=== PATIENT | female | born 1965 | race Caucasian/White ===

== ENCOUNTER 2021-08-02 19:55 | Emergency (ER) | payer BC ==
[2021-08-02 20:31] VITALS: BP 131/81; PULSE 76; RESP 18; TEMP 98.2
--- NOTE | 2021-08-02 21:11 | XR ---
EXAMINATION TYPE: XR ankle complete RT DATE OF EXAM: 08/02/2021 COMPARISON: NONE HISTORY: Ankle pain TECHNIQUE: 3 views FINDINGS: Ankle mortise is anatomic. I see no fracture nor dislocation. Joint spaces are normal. IMPRESSION: Mild plantar calcaneal spurring. No ankle fracture.
--- NOTE | 2021-08-02 21:12 | XR ---
EXAMINATION TYPE: XR foot complete RT DATE OF EXAM: 08/02/2021 COMPARISON: NONE HISTORY: Pain TECHNIQUE: 3 views FINDINGS: There is plantar calcaneal spurring. Metatarsals appear intact. The toes appear intact. Holly nt spaces are fairly normal. IMPRESSION: No acute abnormality of the right foot.
--- NOTE | 2021-08-02 21:47 | ED ---
General Adult HPI - General Chief complaint: Extremity Injury, Lower Stated complaint: right foot pain Time Seen by Provider: 08/02/21 20:51 Source: patient Mode of arrival: wheelchair Limitations: no limitations - History of Present Illness Initial comments: 55-year-old female was mowing the grass when she twisted her right ankle. Patient has been complaining of ankle pain for the day. States it is painful to walk on. Patient denies hitting her head or any other injuries.Patient has no other complaints at this time including shortness of breath, chest pain, abdominal pain, nausea or vomiting, headache, or visual changes. - Related Data Allergies Allergy/AdvReac Type Severity Reaction Status Date / Time No Known Allergies Allergy Verified 08/02/21 20:28 Review of Systems ROS Statement: Those systems with pertinent positive or pertinent negative responses have been documented in the HPI. ROS Other: All systems not noted in ROS Statement are negative. Past Medical History Past Medical History: No Reported History History of Any Multi-Drug Resistant Organisms: None Reported Past Surgical History: No Surgical Hx Reported Past Psychological History: No Psychological Hx Reported Smoking Status: Current every day smoker Past Alcohol Use History: None Reported Past Drug Use History: None Reported General Exam Limitations: no limitations General appearance: alert, in no apparent distress Head exam: Present: atraumatic Eye exam: Present: normal appearance, PERRL, EOMI. Absent: scleral icterus, conjunctival injection ENT exam: Present: normal exam, mucous membranes moist Neck exam: Present: normal inspection, full ROM. Absent: tenderness Respiratory exam: Present: normal lung sounds bilaterally. Absent: respiratory distress, wheezes Cardiovascular Exam: Present: regular rate, normal rhythm, normal heart sounds Extremities exam: Present: tenderness (Tenderness to the lateral malleolus and dorsal proximal right foot. No tenderness to the fifth metatarsal.), normal capillary refill (Capillary refill less than 2 seconds, DP pulse 2+ right lower extremity), joint swelling (Mild edema noted to the lateral malleolus of the right ankle.), other (Sensation intact right lower extremity) Course Vital Signs 08/02/21 20:29 Temperature 98.2 F Pulse Rate 76 Respiratory 18 Rate Blood Pressure 131/81 O2 Sat by Pulse 97 Oximetry Procedures - Orthopedic Splinting/Casting Injury #1 Side: right Lower Extremity Injury Location: ankle Lower Extremity Immobilizer: [employer] Medical Decision Making - Medical Decision Making X-ray of the right ankle shows mild plantar calcaneal spurring without fracture. X-ray of the right foot shows no acute abnormality. X-ray of the right ankle shows no fracture. No acute abnormality of the right foot on x-ray as well. I did recommend a splint as it is painful to bear weight however patient states that she would rather have a brace that she can remove as she does not want to go to orthopedics unless necessary. She was placed in an ankle air cast and asked if I'll much better. She was given crutches. She was given a referral to orthopedics that we can rule out any occult fractures if we do not have improvement symptoms. She will return here for any worsening symptoms. Disposition Clinical Impression: Ankle pain Disposition: HOME SELF-CARE Condition: Good Instructions (If sedation given, give patient instructions): Ankle Sprain (ED) Additional Instructions: Please take Motrin and Tylenol for pain. Use crutches as needed. Follow up with orthopedics. Return to the emergency room for any worsening symptoms. Is patient prescribed a controlled substance at d/c from ED?: No Referrals: Nuris Clemons MD [Primary Care Provider] - 1-2 days Brian Lemus MD [STAFF PHYSICIAN] - 1-2 days Time of Disposition: 22:00
== END 2021-08-02 22:11 | disposition home or self-care (01) ==
LOC: EC 19:55
DX: M77.31 Calcaneal spur, right foot (principal); F17.200 Nicotine dependence, unspecified, uncomplicated
CPT/HCPCS: 99283